=== PATIENT | male | born 1940 | race Caucasian/White ===

== ENCOUNTER → 2021-12-28 | Outpatient (CLI) | payer SELFPAY ==
[2021-12-28 12:37] LABS: Anion Gap 9 mmol/L (6-16); Blood Urea Nitrogen 17 mg/dL (8-24); Bun/Creatinine Ratio 22.1 (12.0-20.0); CO2, Blood 28 mmol/L (21-32); Calcium, Blood 9.2 mg/dL (8.5-10.1); Chloride, Blood 105 mmol/L (98-108); Creatinine, Blood 0.77 mg/dL (0.60-1.20); Glomerular Filtration Rate >60 (60-); Glucose, Blood 88 mg/dL (70-99); Magnesium, Blood 1.8 mg/dL (1.6-2.4); Phosphorus, Blood 3.8 mg/dL (2.5-4.9); Potassium, Blood 4.7 mmol/L (3.5-5.5); Sodium, Blood 142 mmol/L (136-145)
== END ==
LOC: LAB SHORT 12:16
PROVIDERS: Chiropractor
DX: I10 Essential (primary) hypertension (principal)
CPT/HCPCS: 80069; 83735

== ENCOUNTER 2023-09-09 04:13 | Emergency (ER) | payer MEDICARE, BC ==
[~2023-09-09] VITALS: Ht 172.7 cm; Wt 102.1 kg
[2023-09-09] MEDS ORDERED: LISI20 PO (04:29)
[2023-09-09] MEDS ORDERED: FUROSEMIDE20 MG PO (04:30)
[2023-09-09] MEDS ORDERED: KLOR-CON 1010 ME9 PO (04:30)
[2023-09-09] MEDS ORDERED: ATOR40TA (04:30)
[2023-09-09] MEDS ORDERED: ELIQUIS2.5 M1 PO (04:31)
[2023-09-09] MEDS ORDERED: METO50ER PO (04:31)
[2023-09-09] MEDS ORDERED: VERAPAMIL SR240 M1 PO (04:31)
[2023-09-09] MEDS ORDERED: HYDCHL25 (04:33)
[2023-09-09 05:02] LABS: BASOPHILS ABSOLUTE AUTO 0.07 K/mm3 (0.00-0.23); BASOPHILS PERCENT AUTO 1 % (0-2); EOSINOPHILS ABSOLUTE AUTO 0.05 K/mm3 (0.00-0.68); EOSINOPHILS PERCENT AUTO 1 % (0-6); Hematocrit 43.2 % (37.0-53.0); Hemoglobin 13.8 g/dL (13.5-17.5); IMMATURE GRAN ABSOLUTE AUTO 0.02 K/mm3 (0.00-0.10); IMMATURE GRAN PERCENT AUTO 0 % (0-1); LYMPHOCYTES ABSOLUTE AUTO 1.96 K/mm3 (0.84-5.20); LYMPHOCYTES PERCENT AUTO 33 % (21-46); MONOCYTES ABSOLUTE AUTO 0.65 K/mm3 (0.16-1.47); MONOCYTES PERCENT AUTO 11 % (4-13); Mean Corpuscular HGB 29.6 pg (26.0-34.0); Mean Corpuscular HGB Conc 31.9 g/dL (31.5-36.5); Mean Corpuscular Volume 93 fL (80-100); Mean Platelet Volume 9.8 fL (9.1-12.4); NEUTROPHILS PERCENT AUTO 54 % (41-73); Platelet Count 153 K/mm3 (150-400); RDW Coefficient Variation 13.5 % (11.7-14.2); RDW Standard Deviation 45.9 fL (35.1-46.3); Red Blood Cell Count 4.67 M/mm3 (4.30-5.90); White Blood Cell Count 5.95 K/mm3 (4.00-11.30)
[2023-09-09 06:45] VITALS: BP 149/109
== END 2023-09-09 07:00 | disposition home or self-care (01) ==
LOC: ER 04:13
PROVIDERS: Emergency Medicine
DX: R04.0 Epistaxis (principal); I48.91 Unspecified atrial fibrillation; Z79.01 Long term (current) use of anticoagulants; Z79.899 Other long term (current) drug therapy
CPT/HCPCS: 30903; 85025; 99283-25; A9270

== ENCOUNTER 2023-09-10 10:35 | Emergency (ER) | payer MEDICARE, BC ==
[~2023-09-10] VITALS: Ht 172.7 cm; Wt 99.8 kg
[~2023-09-10 10:35] MED LIST: ATOR40TA; ELIQUIS2.5 M1 PO; FUROSEMIDE20 MG PO; HYDCHL25; KLOR-CON 1010 ME9 PO; LISI20 PO; METO50ER PO; VERAPAMIL SR240 M1 PO
[2023-09-10 13:53] VITALS: BP 152/94
== END 2023-09-10 13:53 | disposition home or self-care (01) ==
LOC: ER 10:35
DX: R04.0 Epistaxis (principal); I48.91 Unspecified atrial fibrillation; Z95.0 Presence of cardiac pacemaker; Z79.01 Long term (current) use of anticoagulants; Z79.899 Other long term (current) drug therapy
CPT/HCPCS: 30901; 99283-25

== ENCOUNTER 2023-09-13 08:26 | Emergency (ER) | payer MEDICARE, BC ==
[~2023-09-13] VITALS: Ht 172.7 cm; Wt 99.8 kg
[2023-09-13 10:22] VITALS: BP 157/88
== END 2023-09-13 10:22 | disposition home or self-care (01) ==
LOC: ER 08:26
DX: R04.0 Epistaxis (principal); I48.91 Unspecified atrial fibrillation; Z79.01 Long term (current) use of anticoagulants; Z79.899 Other long term (current) drug therapy; Z95.0 Presence of cardiac pacemaker
CPT/HCPCS: 99282; A9270

== ENCOUNTER → 2023-09-24 | Outpatient (CLI) | payer MEDICARE, BC ==
[2023-09-24 16:49] LABS: BASOPHILS ABSOLUTE AUTO 0.05 K/mm3 (0.00-0.23); BASOPHILS PERCENT AUTO 1 % (0-2); EOSINOPHILS ABSOLUTE AUTO 0.07 K/mm3 (0.00-0.68); EOSINOPHILS PERCENT AUTO 1 % (0-6); Hematocrit 38.8 % (37.0-53.0); Hemoglobin 12.2 g/dL (13.5-17.5); IMMATURE GRAN ABSOLUTE AUTO 0.01 K/mm3 (0.00-0.10); IMMATURE GRAN PERCENT AUTO 0 % (0-1); LYMPHOCYTES ABSOLUTE AUTO 1.28 K/mm3 (0.84-5.20); LYMPHOCYTES PERCENT AUTO 21 % (21-46); MONOCYTES ABSOLUTE AUTO 0.84 K/mm3 (0.16-1.47); MONOCYTES PERCENT AUTO 14 % (4-13); Mean Corpuscular HGB 28.9 pg (26.0-34.0); Mean Corpuscular HGB Conc 31.4 g/dL (31.5-36.5); Mean Corpuscular Volume 92 fL (80-100); Mean Platelet Volume 9.9 fL (9.1-12.4); NEUTROPHILS ABSOLUTE AUTO 3.92 K/mm3 (1.96-9.15); NEUTROPHILS PERCENT AUTO 64 % (41-73); Platelet Count 239 K/mm3 (150-400); RDW Coefficient Variation 13.2 % (11.7-14.2); RDW Standard Deviation 44.5 fL (35.1-46.3); Red Blood Cell Count 4.22 M/mm3 (4.30-5.90); White Blood Cell Count 6.17 K/mm3 (4.00-11.30)
[2023-09-24 17:35] LABS: Calcium, Blood 9.2 mg/dL (8.5-10.1); Creatinine, Blood 0.72 mg/dL (0.60-1.20); Potassium, Blood 4.5 mmol/L (3.5-5.5)
== END ==
LOC: LAB SHORT 15:05 → LAB 15:05
PROVIDERS: Chiropractor
DX: R04.0 Epistaxis (principal); J32.9 Chronic sinusitis, unspecified
CPT/HCPCS: 80048; 85025

== ENCOUNTER 2024-09-21 09:29 | Emergency (ER) | payer MEDICARE, BC ==
[~2024-09-21] VITALS: Ht 172.7 cm; Wt 55.3 kg
[~2024-09-21 09:29] MED LIST changes: -ATOR40TA; +ATOR40TA PO
[2024-09-21 10:59] LABS: BASOPHILS ABSOLUTE AUTO 0.06 K/mm3 (0.00-0.23); BASOPHILS PERCENT AUTO 1 % (0-2); EOSINOPHILS ABSOLUTE AUTO 0.07 K/mm3 (0.00-0.68); EOSINOPHILS PERCENT AUTO 1 % (0-6); Hematocrit 44.8 % (37.0-53.0); Hemoglobin 14.2 g/dL (13.5-17.5); IMMATURE GRAN ABSOLUTE AUTO 0.01 K/mm3 (0.00-0.10); IMMATURE GRAN PERCENT AUTO 0 % (0-1); LYMPHOCYTES ABSOLUTE AUTO 1.71 K/mm3 (0.84-5.20); LYMPHOCYTES PERCENT AUTO 23 % (21-46); MONOCYTES ABSOLUTE AUTO 0.77 K/mm3 (0.16-1.47); MONOCYTES PERCENT AUTO 10 % (4-13); Mean Corpuscular HGB 29.4 pg (26.0-34.0); Mean Corpuscular HGB Conc 31.7 g/dL (31.5-36.5); Mean Corpuscular Volume 93 fL (80-100); Mean Platelet Volume 9.9 fL (9.1-12.4); NEUTROPHILS PERCENT AUTO 65 % (41-73); Platelet Count 152 K/mm3 (150-400); RDW Coefficient Variation 14.2 % (11.7-14.2); RDW Standard Deviation 48.7 fL (35.1-46.3); Red Blood Cell Count 4.83 M/mm3 (4.30-5.90); White Blood Cell Count 7.42 K/mm3 (4.00-11.30)
[2024-09-21 11:13] LABS: Albumin, Blood 3.6 g/dL (3.4-5.0); Bilirubin, Total 1.4 mg/dL (0.1-1.0); Bun/Creatinine Ratio 20.4 (12.0-20.0); Calcium, Blood 9.8 mg/dL (8.5-10.1); Creatinine, Blood 0.84 mg/dL (0.60-1.20); Globulin, Blood 3.6 g/dL (2.2-4.0); Potassium, Blood 5.2 mmol/L (3.5-5.5); Total Protein, Blood 7.2 g/dL (6.4-8.2)
[2024-09-21 11:16] LABS: D-Dimer, Quantitative 0.69 mg/L FEU (0.00-0.52); International Normalized Ratio 1.12; Prothrombin Time Results 11.9 Sec (9.7-11.5)
[2024-09-21] MEDS ORDERED: ALLEGRA ALLERG180 MG PO (11:48)
[2024-09-21] MEDS ORDERED: ACET500 PO (13:36)
[2024-09-21] MEDS ORDERED: OxyCODONE 5 mg/Acetamin 325 mg TABLET PO ONE (13:40)
[2024-09-21 14:01] VITALS: BP 171/99
== END 2024-09-21 14:01 | disposition home or self-care (01) ==
LOC: ER 09:29
PROVIDERS: Physician Assistant
DX: M79.81 Nontraumatic hematoma of soft tissue (principal); Z79.899 Other long term (current) drug therapy
CPT/HCPCS: 80053; 85025; 85379; 85610; 85730; 93926; 93971; 99284-25; A9270

== ENCOUNTER 2024-09-23 13:32 | Emergency (ER) | payer MEDICARE, BC ==
[~2024-09-23] VITALS: Ht 172.7 cm; Wt 102.1 kg
[~2024-09-23 13:32] MED LIST changes: +ACET500 PO; +ALLEGRA ALLERG180 MG PO
[2024-09-23 13:40] VITALS: BP 155/116
== END 2024-09-23 16:30 | disposition home or self-care (01) ==
LOC: ER 13:32
DX: M79.81 Nontraumatic hematoma of soft tissue (principal); Z79.899 Other long term (current) drug therapy
CPT/HCPCS: 99283

== ENCOUNTER 2024-09-24 20:17 | Inpatient (IN) | payer MEDICARE, BC ==
[~2024-09-24] VITALS: Ht 172.7 cm; Wt 101.0 kg
[2024-09-24 22:15] LABS: BASOPHILS ABSOLUTE AUTO 0.05 K/mm3 (0.00-0.23); BASOPHILS PERCENT AUTO 1 % (0-2); EOSINOPHILS ABSOLUTE AUTO 0.04 K/mm3 (0.00-0.68); EOSINOPHILS PERCENT AUTO 1 % (0-6); Hematocrit 32.9 % (37.0-53.0); Hemoglobin 10.5 g/dL (13.5-17.5); IMMATURE GRAN ABSOLUTE AUTO 0.01 K/mm3 (0.00-0.10); IMMATURE GRAN PERCENT AUTO 0 % (0-1); LYMPHOCYTES ABSOLUTE AUTO 1.52 K/mm3 (0.84-5.20); LYMPHOCYTES PERCENT AUTO 22 % (21-46); MONOCYTES ABSOLUTE AUTO 0.92 K/mm3 (0.16-1.47); MONOCYTES PERCENT AUTO 13 % (4-13); Mean Corpuscular HGB 29.4 pg (26.0-34.0); Mean Corpuscular HGB Conc 31.9 g/dL (31.5-36.5); Mean Corpuscular Volume 92 fL (80-100); Mean Platelet Volume 9.3 fL (9.1-12.4); NEUTROPHILS ABSOLUTE AUTO 4.42 K/mm3 (1.96-9.15); NEUTROPHILS PERCENT AUTO 64 % (41-73); Platelet Count 175 K/mm3 (150-400); RDW Coefficient Variation 14.1 % (11.7-14.2); RDW Standard Deviation 47.6 fL (35.1-46.3); Red Blood Cell Count 3.57 M/mm3 (4.30-5.90); White Blood Cell Count 6.96 K/mm3 (4.00-11.30)
[2024-09-24 22:30] LABS: International Normalized Ratio 1.12; Prothrombin Time Results 11.9 Sec (9.7-11.5)
[2024-09-24 22:35] LABS: Albumin, Blood 3.4 g/dL (3.4-5.0); Albumin/Globulin Ratio 0.9 (0.8-1.8); Bilirubin, Total 1.6 mg/dL (0.1-1.0); Bun/Creatinine Ratio 29.5 (12.0-20.0); Creatinine, Blood 0.81 mg/dL (0.60-1.20); Globulin, Blood 3.6 g/dL (2.2-4.0); Potassium, Blood 4.2 mmol/L (3.5-5.5)
[2024-09-24] MEDS ORDERED: Acetaminophen 500 MG Tab PO PRN (23:35)
[2024-09-24] MEDS ORDERED: FLU VACC TS2024-25(6MOS UP)/PF 45 MCG/0.5 ML SYRINGE IM ONE (23:50)
[2024-09-25 02:43] VITALS: BP 146/90
[2024-09-25 04:45] VITALS: BP 177/87
[2024-09-25 05:13] LABS: Hemoglobin 10.3 g/dL (13.5-17.5)
--- NOTE | 2024-09-25 06:17 | NUR ---
REC'D PT FROM ER @ 0220 WITH RLE HEMATOMA WHICH HE HAS BEEN SEEN 3 TIMES FOR SAME ISSUE IN ER. RLE IS WRAPPED WITH GUAZE AND COBAN. PT IS AAO X4. USES WALKER, SBA FOR AMBULATION D/T RLE PAIN AND IMPAIRED GAIT. NO AMBULATION ASSISTANCE DEVICE @ HOME. HIS ELDERLY SISTER LIVES WITH HIM. PT IS PLEASANT AND COOPERATIVE WITH CARES. NO ACUTE EVENTS OVERNIGHT.
--- NOTE | 2024-09-25 06:43 | NUR ---
DR. SAENZ IN ROOM TO ASSESS RLE. PLAN TO LEAVE DRESSING IN PLACE AND POSSIBLY REDRESS THIS AFTERNOON.
[2024-09-25 07:36] VITALS: BP 159/91
[2024-09-25] MEDS ORDERED: Furosemide 20 MG Tab PO SCH (09:00)
[2024-09-25] MEDS ORDERED: Metoprolol Succinate 50 MG TABCR PO SCH ×2 (09:00→21:00)
[2024-09-25] MEDS ORDERED: Lisinopril 20 MG Tab PO SCH (09:00)
[2024-09-25] MEDS ORDERED: Loratadine 10 MG Tab PO SCH (09:00)
[2024-09-25] MEDS ORDERED: Atorvastatin 40 MG Tab PO SCH (09:00)
--- NOTE | 2024-09-25 10:42 | NUR ---
DIAMETER OF R CALF: 52 CM
[2024-09-25 15:26] VITALS: BP 163/82
--- NOTE | 2024-09-25 15:37 | NUR ---
dr armstrong in to see pt changed dressing to rle. measured w/o dressin.6 cm. measured w/new dressing; 49.5 cm
[2024-09-25] MEDS ORDERED: Ipratropium/Albuterol SulF 2.5-0.5MG/3 ML Amp INH PRN (16:15)
--- NOTE | 2024-09-25 16:46 | NUR ---
summary PT WHEEZY THIS AFTERNOON. DR PALACIOS ORDERED DUONEB, WHICH WAS ADMINISTERED PER ORDERS. NO IMPROVEMENT NOTED AFTER DUONEB. NOTIFIED DR PALACIOS. SATS ADEQUATE ON RA. DRESSING TO R CALF CHANGED WHEN DR PALACIOS WAS IN TO SEE PT THIS AFERNOON. MEASUREMENTS TAKEN WITH DRESSING OFF AND NEW DRESSING PLACED. SEE PREVIOUS NOTES FOR MEASUREMENTS. PT AMBULATING TO RESTROOM W/FWW TO VOID. NOW RESTING IN BED, CALL LIGHT IN REACH.
[2024-09-25 19:08] VITALS: BP 136/65
[2024-09-25] MEDS ORDERED: Verapamil HCL 240 MG TABCR PO SCH (21:00)
[2024-09-25] MEDS ORDERED: TraMADol HCl 50 MG Tab PO PRN (21:35)
--- NOTE | 2024-09-26 00:24 | NUR ---
DIAMETER OF R CALF: 47.5CM
[2024-09-26 03:54] VITALS: BP 115/73
--- NOTE | 2024-09-26 06:46 | NUR ---
PT C/O EAR ACHE THROUGHOUT NIGHT. UPON ASSESSMENT PTS EARS LOOK WNL. PT GIVEN TYLENOL FOR PAIN BUT THAT DID NOT HELP. MD AWARE AND ORDERED ONE TIME ORDER OF TORADOL. GIVEN WITH GOOD EFFECT. PT CONTINUES TO BE WHEEZING HOWEVER LUNG SOUNDS ARE DIMINISHED IN ALL LOBES WITH NO CRACKLES. PTS RLE GOING DOWN IN SIZE. PT HAS NO FURTHER COMPLAINTS OR CONCERNS AT THIS TIME.
[2024-09-26 07:07] VITALS: BP 125/65
[2024-09-26 08:23] LABS: BASOPHILS ABSOLUTE AUTO 0.03 K/mm3 (0.00-0.23); BASOPHILS PERCENT AUTO 0 % (0-2); EOSINOPHILS PERCENT AUTO 0 % (0-6); Hematocrit 30.5 % (37.0-53.0); Hemoglobin 9.8 g/dL (13.5-17.5); IMMATURE GRAN ABSOLUTE AUTO 0.04 K/mm3 (0.00-0.10); IMMATURE GRAN PERCENT AUTO 1 % (0-1); LYMPHOCYTES ABSOLUTE AUTO 1.14 K/mm3 (0.84-5.20); LYMPHOCYTES PERCENT AUTO 15 % (21-46); MONOCYTES ABSOLUTE AUTO 1.18 K/mm3 (0.16-1.47); MONOCYTES PERCENT AUTO 15 % (4-13); Mean Corpuscular HGB 29.6 pg (26.0-34.0); Mean Corpuscular HGB Conc 32.1 g/dL (31.5-36.5); Mean Corpuscular Volume 92 fL (80-100); Mean Platelet Volume 9.1 fL (9.1-12.4); NEUTROPHILS ABSOLUTE AUTO 5.41 K/mm3 (1.96-9.15); NEUTROPHILS PERCENT AUTO 69 % (41-73); Platelet Count 182 K/mm3 (150-400); RDW Coefficient Variation 14.2 % (11.7-14.2); RDW Standard Deviation 48.3 fL (35.1-46.3); Red Blood Cell Count 3.31 M/mm3 (4.30-5.90)
[2024-09-26 08:55] LABS: Bun/Creatinine Ratio 25.7 (12.0-20.0); Calcium, Blood 8.9 mg/dL (8.5-10.1); Creatinine, Blood 0.9 mg/dL (0.60-1.20); Potassium, Blood 4.2 mmol/L (3.5-5.5)
[2024-09-26] MEDS ORDERED: Fluticasone 0.05% Nasal Spray SCH (09:00)
--- NOTE | 2024-09-26 11:11 | NUR ---
DR. BARON ROUNDED DISCUSSED DRESSING CHANGE ORDERS, DR. BARON REQUESTED THAT HE BE CALLED WHEN DRESSING IS CHANGED. PT REPORTS THAT HIS BASELINE SHORTNESS OF BREATH WITH ACTIVITY HAS INCREASED SLIGHTLY SINCE ADMIT TO THE HOSPITAL. HE HAS INSPIRATORY AND EXPIRATORY WHEEZES T/O. DISCUSSED POSSIBLE NEED FOR RESPIRATORY INTERVENTION. PT IS GETTING BREATHING TREATMENTS FROM RESPIRATORY THERAPY. PT DENIES ANY HISTORY OF CHRONIC RESPIRATORY ILLNESS BUT DOES REPORT A RECENT COLD.
[2024-09-26] MEDS ORDERED: OxyCODONE HCL 5 MG TAB PO PRN (14:35)
[2024-09-26 15:13] VITALS: BP 123/74
--- NOTE | 2024-09-26 15:30 | NUR ---
DR. FORREST ROUNDED THIS RN WAS NOTIFIED BY ELE BRITO THAT DR. FORREST WAS PRESENT ON THE UNIT ROUNDNING ON THIS PATIENT. THIS RN WAS HANDED 4X4 GAUZE AND NOTIFIED THAT DR. FORREST WANTED A CHUX PAD FOR A BEDSIDE PROCEDURE. BROUGHT SUPPLIES TO PT'S ROOM WHERE DR. FORREST WAS ALREADY AT THE BEDSIDE WITH PT'S LEG UNWRAPPED FROM THE DRESSING. THIS RN SANITIZED HANDS UPON ENTERING THE ROOM AND GLOVED. DURING THIS TIME PT AND FAMILY ASKED DR. FORREST WHAT HE WOULD BE DOING; HE STATED "I'M GOING TO POKE A SMALL HOLE IN YOUR LEG." FAMILY DECIDED TO LEAVE THE ROOM. DR. FORREST PLACED CHUX UNDER PT'S RIGHT LEG. THIS RN RAISED BED TO WORKING HEIGHT. DR. FORREST MADE APPROXIMATELY A 2 INCH INCISION IN THE PATIENT'S LEG. BLISTERS NEAR INCISION SITE WERE ALSO DRAINED. DR. FORREST ALSO APPLIED PRESSURE AROUND THE INCISION SITE, SMALL AMOUNT OF DARK BROWNISH/RED BLOOD CAME OUT OF INCISION. DR. FORREST PROBED THE INCISION WITH PLASTIC HANDLE OF THE SCALPEL. PT TOLERATED WELL WITH MINIMAL PAIN DURING PROCEDURE. DR. SPARKS ORDERED THE INCISION TO BE COVERED WITH 4X4 GUAZE AND OG WRAP. DRESSING PLACED. PULSES PRESENT AND PALPABLE AFTER PROCEDURE. PT DID REPORT SLIGHTLY INCREASED PAIN AFTER PROCEDURE WAS FINISHED. PROCEDURE HAPPENED AT APPROXIMATELY 1430. DR. BARON NOTIFIED OF BEDSIDE PROCEDURE, HE DECLINED NEED FOR ABX AT THIS TIME. DR. BARON PROVIDED AN ORDER FOR PAIN MEDICATION WHICH WAS GIVEN BY ELISABETH BRITO. SPOKE WITH ELISABETH STACK RN AND NURSING UNIT SUPPORT REPRESENTATIVE REGARDING BEDSIDE PROCEDURE. DR. BARON ROUNDED ON PT AT APPROXIMATELY 1515 TO ASSESSED PT'S LEG AND INCISION SITE; HE ASSISTED TO CLEANSE THE SITE WITH SKINTEGRITY AND REWRAP THE LEG WITH 4X4 GAUZE AND OG WRAP.
[2024-09-26] MEDS ORDERED: CeFAZolin Sodium 2,000 MG in NS 100 ML IV SCH (18:20)
[2024-09-26 19:23] VITALS: BP 124/79
--- NOTE | 2024-09-26 19:44 | NUR ---
SHIFT SUMMARY PLAN FOR OR TOMORROW TO REMOVE HEMATOMA WITH DR. FORREST. PT HAS BEEN A 1 ASSIST WITH GAIT BELT AND WALKER WHEN OOB. PT REPORTS GETTING SHORTNESS OF BREATH WITH ACTIVITY, PT STATES THIS IS NOT UNUSUAL FOR HIM BUT HAS BEEN SLIGHTLY WORSE SINCE BEING ADMITTED TO THE HOSPITAL, DOCTOR NOTIFIED. PAIN MANAGED WITH TYLENOL MOST OF THE DAY, OXYCODONE ADDED THIS EVENING. BEDSIDE REPORT GIVEN TO NOC RN. NOC RN WAS NOTIFIED THAT LISINOPRIL AND LASIX NEED TO BE HELD TOMORROW MORNING.
[2024-09-27] VITALS (15 sets, daily range): BP systolic 99–152; BP diastolic 56–94
--- NOTE | 2024-09-27 04:37 | NUR ---
SHIFT SUMMARY ASSUMED CARE OF PT AT 1900. PT A&O4, COOPERATIVE IN CARE AND ABLE TO EXPRESS NEEDS APPROPRIATELY. PT PRESENTED WITH HEMATOMA WITH INCISION TO THE RLE WRAPPED IN OG BANDAGE PREFORMED BY PRIOR TO THIS SHIFT. PT DENIES CP/PRESSURE AND SOB. VSS AND PT REMAINED ON RA. NO COMPLAINTS OF LEG PAIN OVERNIGHT AND PT SLEEPING SOUNDLY, EYES CLOSED AND CHEST RISING, MOST OF THE NIGHT. PT EASLIY AROUSABLE. NURSING NOTIFICATION ORDER TO HOLD LASIX AND LISINOPRIL TO BE HELD TODAY, 09/27/24 FOR PROCEDURE. PT'S BED IN LOWEST POSITION AND CALL LIGHT WITHIN REACH.
--- NOTE | 2024-09-27 06:04 | NUR ---
SHIFT SUMMARY ASSUMED CARE OF PT AT 1900. PT A&O4, COOPERATIVE IN CARE AND ABLE TO EXPRESS NEEDS APPROPRIATELY. PT PRESENTED WITH 3 SMALL MIDLINE ABDOMINAL INCISIONS AND ONE INSCISION TO THE LUQ ALL SEALED WITH SUGICAL GLUE. ALL C/D/I WITH NO DRAINAGE. PT WALKED AROUND THE UNIT WITH FAMILY FOR ABOUT 10 MINS AND PT MAINTAINED O2 SATURATION. PT DENIES SOB AND CP/PRESSURE. PER PT REQUEST; DRYING ROOM SUPERVISOR CALLED MD TO SWITCH IV PRN ANALGESICS TO ORAL. VSS AND PT ON RA MAJORITY OF THE NIGHT. BED IN LOWEST POSITION AND CALL LIGHT WITHIN REACH.
[2024-09-27 06:53] LABS: BASOPHILS ABSOLUTE AUTO 0.05 K/mm3 (0.00-0.23); BASOPHILS PERCENT AUTO 1 % (0-2); EOSINOPHILS PERCENT AUTO 0 % (0-6); Hematocrit 29.9 % (37.0-53.0); Hemoglobin 9.5 g/dL (13.5-17.5); IMMATURE GRAN ABSOLUTE AUTO 0.07 K/mm3 (0.00-0.10); IMMATURE GRAN PERCENT AUTO 1 % (0-1); LYMPHOCYTES ABSOLUTE AUTO 1.12 K/mm3 (0.84-5.20); LYMPHOCYTES PERCENT AUTO 11 % (21-46); MONOCYTES ABSOLUTE AUTO 1.33 K/mm3 (0.16-1.47); MONOCYTES PERCENT AUTO 13 % (4-13); Mean Corpuscular HGB 29.3 pg (26.0-34.0); Mean Corpuscular HGB Conc 31.8 g/dL (31.5-36.5); Mean Corpuscular Volume 92 fL (80-100); Mean Platelet Volume 9.1 fL (9.1-12.4); NEUTROPHILS ABSOLUTE AUTO 7.75 K/mm3 (1.96-9.15); NEUTROPHILS PERCENT AUTO 75 % (41-73); Platelet Count 210 K/mm3 (150-400); RDW Coefficient Variation 14.2 % (11.7-14.2); RDW Standard Deviation 48.3 fL (35.1-46.3); Red Blood Cell Count 3.24 M/mm3 (4.30-5.90); White Blood Cell Count 10.32 K/mm3 (4.00-11.30)
[2024-09-27 07:10] LABS: Calcium, Blood 8.9 mg/dL (8.5-10.1); Creatinine, Blood 1.32 mg/dL (0.60-1.20); Potassium, Blood 4.5 mmol/L (3.5-5.5)
--- NOTE | 2024-09-27 09:03 | NUR ---
MORNING NOTE ASSUMED CARE AT APPROX 0715. PATIENT ALERT AND ORIENTED X4. COMMUNICATES NEEDS EFFECTIVELY. VSS. TELEMETRY SHOWING AFIB 70 PER FUR LINER. BP SOFT, SBP 90s-110s. MAP >65. DENIES CHEST PAIN, PRESSURE. ASYMPTOMATIC OF SOFT BP. ON ROOM AIR, SATs >90%. EXP WHEEZE AUSCULTATED T/O - RECEIVING BREATHING TREATMENTS. RLE WRAPPED IN GAUZE AND OG WRAP FROM BEDSIDE DECOMPRESSION YESTERDAY - MINIMAL SANGUINOUS DRAINAGE. BRUISING TO CALF EXTENDING TO R FOOT. +3 EDEMA TO FOOT. EXTREMITY PINK, PPP. DENIES NUMBNESS/TINGLING. AWAITING I/D - NPO SINCE MIDNIGHT. PAIN TOLERABLE AT THIS TIME. 1P ASSIST W/ FWW GB. CALL LIGHT IN REACH.
[2024-09-27] MEDS ORDERED: Budesonide 1 MG/2 ML RESP INH SCH (09:40)
[2024-09-27] MEDS ORDERED: propofoL 20 ML IV ONE (09:52)
[2024-09-27] MEDS ORDERED: FentaNYL Citrate 50 MCG/ML 2 ML Injection ONE (09:52)
[2024-09-27] MEDS ORDERED: Lactated Ringer's 1,000 ML IV SCH (09:55)
[2024-09-27] MEDS ORDERED: Polyethylene Glycol 3350 17 gm PO ONE (10:00)
[2024-09-27] MEDS ORDERED: Bupivacaine 0.5% HCl 5 MG/ML 30MLVIAL ONE (10:04)
--- NOTE | 2024-09-27 10:09 | NUR ---
PATIENT TRANSFERRED OFF UNIT VIA BED FOR PROCEDURE AT APPROX 1005.
[2024-09-27] MEDS ORDERED: Ipratropium/Albuterol SulF 2.5-0.5MG/3 ML Amp INH ONE (10:15)
--- NOTE | 2024-09-27 10:15 | NUR ---
INTO SDS VIA BED. PT DENIES PAIN. HISTORY AND ALLERGIES REVIEWED. LUNGS WITH SCATTERED WHEEZED AND RHONCHI TO THE BASES. PT HAS A MOIST COUGH THAT IS OCCASIONALLY PRODUCTIVE OF GREEN SPUTUM. NPO STATUS CONFIRMED.RIGHT CALF WITH OG WRAP. THE RIGHT LOWER EXTREMITY WITH ERYTHEMA NOTED.
--- NOTE | 2024-09-27 10:20 | NUR ---
#20 PIV TO RIGHT FOREARM C/D/I-FLUSHES WELL.
--- NOTE | 2024-09-27 10:39 | NUR ---
AFTER UDN-COUGH PRODUCTIVE OF A MODERATE AMOUNT OF THICK, REYNOLDS SPUTUM. 12 LEAD EKG DONE. PT WATCH TAKEN BACK TO HIS ROOM WITH THE REST OF HIS BELONGINGS.
[2024-09-27] MEDS ORDERED: Etomidate 2MG / ML 10ML Vial ONE (10:43)
[2024-09-27] MEDS ORDERED: Dexamethasone Sod Phos 10 MG/ML 1ML VIAL ONE (11:26)
[2024-09-27] MEDS ORDERED: Ondansetron HCl 2 MG / ML 2ML Vial ONE (11:26)
--- NOTE | 2024-09-27 12:26 | NUR ---
RETURN TO UNIT PATIENT TRANSFERRED BACK TO UNIT FROM PACU AT APPROX 1220. PATIENT ALERT AND ORIENTED X4, COMMUNICATING NEEDS EFFECTIVELY. VSS. CURRENTLY ON 3L VIA NC, SATs >90%. LUNG SOUNDS COARSE. ENCOURAGING DEEP BREATHS AND COUGHING. S/P I/D WITH WOUND VAC PLACEMENT. WOUND VAC WNL - FUNCTIONING WELL. DENIES PAIN. TOLERATING SMALL SIPS OF WATER AND SNACKS. DIET ORDER NOW IN PLACE. CALL LIGHT IN REACH. FAMILY AT BEDSIDE VISITING.
--- NOTE | 2024-09-27 17:54 | NUR ---
SHIFT SUMMARY NO ACUTE CHANGES SINCE PREVIOUS DOCUMENTATION. PATIENT SLEPT MOST OF THE AFTERNOON FOLLOWING PROCEDURE, EASILY AROUSABLE WITH VERBAL STIMULI. VS REMAIN STABLE. NO EVENTS REPORTED FROM TELEMETRY. TITRATED TO ROOM AIR, SATs >90%. OCCASIONAL HACKING, CONGESTED COUGH. OCCASIONALLY PRODUCTIVE. WOUND VAC TO RLE REMAINS PATENT - MINIMAL SANGUINOUS DRAINAGE IN COLLECTION CHAMGER. PAIN MANAGED PER EMAR. UP TO RESTROOM TO VOID WITH 1P ASSIST FWW GB. NO BM THIS SHIFT. TOLERATING PO INTAKE. CALL LIGHT IN REACH. WILL CONTINUE TO MONITOR AND REPORT TO ONCOMING RN.
--- NOTE | 2024-09-27 23:05 | NUR ---
CALLED RT FOR PRN RESP TREATMENT D/T COUGHING.
[2024-09-28] VITALS (7 sets, daily range): BP systolic 90–131; BP diastolic 58–75
--- NOTE | 2024-09-28 04:10 | NUR ---
SHIFT SUMMARY PATIENT WAS ABLE TO SLEEP IN LONG INTERVALS, INTERRUPTED BY EPISODES OF COUGHING. RT PAGED AND HE WAS GIVEN A PRN RESP. TREATMENT. ALSO GIVEN ORAL PAIN MEDS AT HS, DID START O2/2L/NC FOR THE NIGHT TO KEEP SATS UP. TELE, V PACED @ 92, WITH UNDERLYING RHYTHM OF A FIB. WOUND VAC, DRAINING BLOOD-TINGED DRAINAGE IN SMALL AMOUNTS ALL NIGHT.
[2024-09-28 06:09] LABS: BASOPHILS ABSOLUTE AUTO 0.02 K/mm3 (0.00-0.23); BASOPHILS PERCENT AUTO 0 % (0-2); EOSINOPHILS PERCENT AUTO 0 % (0-6); Hematocrit 29.1 % (37.0-53.0); Hemoglobin 9.2 g/dL (13.5-17.5); IMMATURE GRAN ABSOLUTE AUTO 0.05 K/mm3 (0.00-0.10); IMMATURE GRAN PERCENT AUTO 1 % (0-1); LYMPHOCYTES ABSOLUTE AUTO 0.61 K/mm3 (0.84-5.20); LYMPHOCYTES PERCENT AUTO 6 % (21-46); MONOCYTES ABSOLUTE AUTO 0.85 K/mm3 (0.16-1.47); MONOCYTES PERCENT AUTO 8 % (4-13); Mean Corpuscular HGB 29.2 pg (26.0-34.0); Mean Corpuscular HGB Conc 31.6 g/dL (31.5-36.5); Mean Corpuscular Volume 92 fL (80-100); NEUTROPHILS ABSOLUTE AUTO 9.32 K/mm3 (1.96-9.15); NEUTROPHILS PERCENT AUTO 86 % (41-73); Platelet Count 228 K/mm3 (150-400); RDW Coefficient Variation 14.2 % (11.7-14.2); RDW Standard Deviation 48.1 fL (35.1-46.3); Red Blood Cell Count 3.15 M/mm3 (4.30-5.90); White Blood Cell Count 10.85 K/mm3 (4.00-11.30)
[2024-09-28 06:35] LABS: Bun/Creatinine Ratio 46.2 (12.0-20.0); Calcium, Blood 9.1 mg/dL (8.5-10.1); Potassium, Blood 4.5 mmol/L (3.5-5.5)
[2024-09-28] MEDS ORDERED: Polyethylene Glycol 3350 17 gm PO PRN (09:00)
[2024-09-28] MEDS ORDERED: Psyllium 1 EA Pack PO SCH (09:00)
--- NOTE | 2024-09-28 09:59 | NUR ---
MORNING NOTE THIS RN ASSUMED CARE AT APPROX 0715. PATIENT ALERT AND ORIENTED X4. COMMUNICATES NEEDS EFFECTIVELY. TELEMETRY SHOWING AFIB 70s WITH PACED BEATS PER PERFORMANCE INSTRUCTOR. BP SOFT - SBP 90s-100s. MAP >65. ASYMPTOMATIC - DENIES DIZZINESS WITH AMBULATION. HTN MEDICATIONS HELD. PO LASIX ADMINISTERED PER EMAR DUE TO +2 EDEMA TO LLE, +3 EDEMA TO RLE. SHORTNESS OF BREATH WITH MOBILITY. ON ROOM AIR, SATs >90%. EXPERIENCES EPISODES OF INCREASED HACKING COUGH, SOMEWHAT PRODUCTIVE. COARSE T/O THIS MORNING. RECEIVING BREATHING TREATMENTS PRN. POD 1 I/D RLE WITH WOUND VAC. WOUND VAC PATENT - MINIMAL RED SANGUINOUS DRAINAGE IN COLLECTION CHAMBER. MANAGING PAIN PER EMAR. TOLERATING PO INTAKE. UP WITH 1P ASSIST FWW GB - DENIED SITTING IN CHAIR THIS MORNING. VOIDING. BOWEL CARE STARTED FOR REPORTED CONSTIPATION. CALL LIGHT IN REACH.
--- NOTE | 2024-09-28 17:02 | NUR ---
SHIFT SUMMARY NO ACUTE EVENTS SINCE PREVIOUS DOCUMENTATION. VSS. NO TELEMETRY EVENTS REPORTED. BP REMAINS SOFT, SBP 90s-100s. MAP >65. CONTINUED SHORTNESS OF BREATH WITH MOBILITY. REMAINS ON ROOM AIR. EPISODES OF CONGESTED COUGH. WOUND VAC REMAINS PATENT W/ SANGUINOUS RED DRAINAGE. MANAGING PAIN PER EMAR. PHYSICAL AND OCCUPATIONAL EVAL ORDERS IN PLACE - WORKED WITH OCCUPATIONAL THERAPY. UP WITH 1P ASSIST FWW GB TO RESTROOM. DECREASED URINARY OUTPUT NOTED - ENCOURAGING PO INTAKE. BLADDER SCAN PERFORMED SHOWING <100. NO BM THIS SHIFT. CALL LIGHT IN REACH. WILL CONTINUE TO MONITOR AND REPORT TO ONCOMING RN.
[2024-09-29] VITALS (19 sets, daily range): BP systolic 94–164; BP diastolic 54–111
--- NOTE | 2024-09-29 05:34 | NUR ---
SHIFT SUMMARY PT HAS RESTS IN BED T/O THE NIGHT, PT HAS INTERMITTENT CONFUSION. PT WAKES UP CONFUSED AND DISORIENTED, FORGETS WHERE HE IS. PT REORIENTED PRN. BED ALARM IN PLACE FOR SAFETY. WOUND VAC IN PLACE TO RIGHT LOWER EXT. PULSES STRONG IN RIGHT FOOT. PT AMBULATES TO THE BATHROOM WITH 1 PA. PT BP SOFT WITH AM VITALS, BUT MAP WNL. PLAN OF CARE REMAINS UNCHANGED. BED IN LOWEST POSITION, CALL LIGHT WITHIN REACH.
[2024-09-29 07:08] LABS: BASOPHILS ABSOLUTE AUTO 0.04 K/mm3 (0.00-0.23); BASOPHILS PERCENT AUTO 0 % (0-2); EOSINOPHILS ABSOLUTE AUTO 0.03 K/mm3 (0.00-0.68); EOSINOPHILS PERCENT AUTO 0 % (0-6); Hematocrit 27.8 % (37.0-53.0); Hemoglobin 8.9 g/dL (13.5-17.5); IMMATURE GRAN ABSOLUTE AUTO 0.06 K/mm3 (0.00-0.10); IMMATURE GRAN PERCENT AUTO 1 % (0-1); LYMPHOCYTES ABSOLUTE AUTO 0.97 K/mm3 (0.84-5.20); LYMPHOCYTES PERCENT AUTO 9 % (21-46); MONOCYTES ABSOLUTE AUTO 0.86 K/mm3 (0.16-1.47); MONOCYTES PERCENT AUTO 8 % (4-13); Mean Corpuscular HGB 29.5 pg (26.0-34.0); Mean Corpuscular Volume 92 fL (80-100); NEUTROPHILS ABSOLUTE AUTO 8.54 K/mm3 (1.96-9.15); NEUTROPHILS PERCENT AUTO 81 % (41-73); Platelet Count 255 K/mm3 (150-400); RDW Coefficient Variation 14.3 % (11.7-14.2); RDW Standard Deviation 48.1 fL (35.1-46.3); Red Blood Cell Count 3.02 M/mm3 (4.30-5.90)
[2024-09-29 07:21] LABS: Bun/Creatinine Ratio 50.5 (12.0-20.0); Calcium, Blood 8.9 mg/dL (8.5-10.1); Creatinine, Blood 1.09 mg/dL (0.60-1.20); Potassium, Blood 4.3 mmol/L (3.5-5.5)
[2024-09-29] MEDS ORDERED: Lisinopril 5 MG Tab PO SCH (09:00)
--- NOTE | 2024-09-29 14:19 | NUR ---
DR JIMÉNEZ IN TO SEE PT.
[2024-09-29] MEDS ORDERED: TraMADol HCl 50 MG Tab PO PRN (14:35)
[2024-09-29] MEDS ORDERED: CefTRIAXone Sodium 2,000 MG in NS 100 ML IV SCH (15:00)
[2024-09-29] MEDS ORDERED: NS 250 ML IV PRN (15:20)
--- NOTE | 2024-09-29 16:24 | NUR ---
PT TO PRE OP IN BED.
[2024-09-29] MEDS ORDERED: Lactated Ringer's 1,000 ML IV SCH (16:30)
--- NOTE | 2024-09-29 16:37 | NUR ---
History, Chart, Medications and Allergies reviewed before start of procedure. Pre-Op teaching done. Pt verbalizes understanding. Patient confirms NPO status and agrees with scheduled surgery. PT BELONGINGS LEFT IN PT SURG FLOOR RM.
[2024-09-29] MEDS ORDERED: Ondansetron HCl 2 MG / ML 2ML Vial ONE (16:43)
[2024-09-29] MEDS ORDERED: propofoL 0 ML IV ONE (16:43)
[2024-09-29] MEDS ORDERED: Dexamethasone Sod Phos 10 MG/ML 1ML VIAL ONE (16:43)
[2024-09-29] MEDS ORDERED: propofoL 40 ML IV ONE (16:44)
[2024-09-29] MEDS ORDERED: Phenylephrine HCl 100 MCG/ML-NS 10MLSYR (1MG/10ML) ONE (16:54)
[2024-09-29] MEDS ORDERED: CeFAZolin Sodium 1000 mg Vial ONE (16:56)
[2024-09-29] MEDS ORDERED: FentaNYL Citrate 50 MCG/ML 2 ML Injection ONE (17:00)
[2024-09-29] MEDS ORDERED: Ketorolac Tromethamine 30mg Vial ONE (17:04)
--- NOTE | 2024-09-29 18:24 | NUR ---
PT ARRIVED TO UNIT FROM PACU IN BED. VSS. WOUND VAC COMPRESSED. PROVIDED CALL LIGHT, INSTRUCTED PT TO NOT GET UP WITH OUT ASSISTANCE; VERBALIZED UNDERSTANDING. PROVIDED SNACK FOR PT.
[2024-09-30 03:56] VITALS: BP 94/62
--- NOTE | 2024-09-30 05:10 | NUR ---
SHIFT SUMMARY PT POD 0 RLE I&D. PT HAS RESTED T/O THE NIGHT, PAIN HAS BEEN MANANGED WITH MEDS PER EMAR. WOUND VAC IN PLACE. PT HAS NOT ATTEMPTED TO GET OOB WITHOUT ASSISTANCE. A/OX4. VITALS STABLE. SURGICAL SITE WNL. PT TOLERATING PO INTAKE. BED IN LOWEST POSITION, CALL LIGHT WITHIN REACH.
[2024-09-30 07:06] VITALS: BP 133/80
[2024-09-30 08:01] LABS: BASOPHILS ABSOLUTE AUTO 0.02 K/mm3 (0.00-0.23); BASOPHILS PERCENT AUTO 0 % (0-2); EOSINOPHILS PERCENT AUTO 0 % (0-6); Hemoglobin 9.1 g/dL (13.5-17.5); IMMATURE GRAN ABSOLUTE AUTO 0.08 K/mm3 (0.00-0.10); IMMATURE GRAN PERCENT AUTO 1 % (0-1); LYMPHOCYTES ABSOLUTE AUTO 0.75 K/mm3 (0.84-5.20); LYMPHOCYTES PERCENT AUTO 8 % (21-46); MONOCYTES ABSOLUTE AUTO 0.51 K/mm3 (0.16-1.47); MONOCYTES PERCENT AUTO 6 % (4-13); Mean Corpuscular HGB 29.3 pg (26.0-34.0); Mean Corpuscular HGB Conc 31.4 g/dL (31.5-36.5); Mean Corpuscular Volume 93 fL (80-100); Mean Platelet Volume 8.8 fL (9.1-12.4); NEUTROPHILS ABSOLUTE AUTO 7.58 K/mm3 (1.96-9.15); NEUTROPHILS PERCENT AUTO 85 % (41-73); Platelet Count 276 K/mm3 (150-400); RDW Coefficient Variation 14.3 % (11.7-14.2); RDW Standard Deviation 48.5 fL (35.1-46.3); Red Blood Cell Count 3.11 M/mm3 (4.30-5.90); White Blood Cell Count 8.94 K/mm3 (4.00-11.30)
[2024-09-30 08:23] LABS: Bun/Creatinine Ratio 54.7 (12.0-20.0); Calcium, Blood 9.6 mg/dL (8.5-10.1); Creatinine, Blood 0.8 mg/dL (0.60-1.20); Potassium, Blood 5.5 mmol/L (3.5-5.5)
[2024-09-30 12:10] LABS: CORONAVIRUS COVID-19 AG Negative (NEGATIVE)
[2024-09-30 15:17] VITALS: BP 143/88
--- NOTE | 2024-09-30 18:38 | NUR ---
SHIFT SUMMARY PT IS POD#1 FROM I&D. PAIN MANAGED WITH TYLENOL AND ULTRAM THIS SHIFT. HE IS A SBA WITH WALKER WHEN OOB. PLAN FOR DC TO SNF TOMORROW. PT IS FORGETFUL AT TIMES REGARDING CARE BUT REORIENTS EASILY.
[2024-09-30 19:09] VITALS: BP 144/75
--- NOTE | 2024-10-01 04:08 | NUR ---
SHIFT SUMMARY POD 3 REPEAT I&D TO RLE PT ABLE TO SLEEP FOR MOST OF SHIFT. DENIES ANY PAIN. TOLERATING PO INTAKE, VOIDING. PT ABLE TO GET UP AND AMB TO THE BATHROOM WITH FWW AND GB. WOUND VAC IN PLACE TO RLE, DRAINING AND SEALED. VSS. PLAN TO D/C TO [facility] TODAY. NO OTHER CONCERNS AT THIS TIME, CALL LIGHT WITHIN REACH
[2024-10-01 05:57] VITALS: BP 121/79
[2024-10-01 07:37] VITALS: BP 136/76
[2024-10-01] MEDS ORDERED: Cefdinir 300 MG Cap PO SCH (09:00)
[2024-10-01] MEDS ORDERED: TraMADol HCl 50 MG Tab PO ONE (10:50)
--- NOTE | 2024-10-01 12:44 | NUR ---
SNF PT DISCHARGED TO [facility] AT THIS TIME. DISCHARGE PACKET SENT WITH EMS. PT FAMILY TOOK ALL PERSONAL BELONGINGS. TELE BOX RETURNED TO PCU. IV DC'D. WOUND VAC LEFT IN PT ROOM FOR CLEANING. PRIMARY RN CALLING REPORT TO SNF NOW.
--- NOTE | 2024-10-01 12:54 | NUR ---
REPORT TO [facility]
== END 2024-10-01 12:40 | DRG 988 ==
LOC: ER 20:17 → SURS 20:18 → ERHOLD 20:18 → SURS 09-25 02:22
PROVIDERS: Hospitalist; Orthopaedic Surgery; Student in an Organized Health Care Education/Training Program; ADMIT Internal Medicine
PROC: 0HBKXZZ Excision of Right Lower Leg Skin, External Approach (ICD-10-PCS; 2024-09-27)
PROC: 0JCN0ZZ Extirpation of Matter from Right Lower Leg Subcutaneous Tissue and Fascia, Open Approach (ICD-10-PCS; principal; 2024-09-27 10:15)
DX: M79.81 Nontraumatic hematoma of soft tissue (principal); I48.20 Chronic atrial fibrillation, unspecified; I50.32 Chronic diastolic (congestive) heart failure; L76.11 Accidental puncture and laceration of skin and subcutaneous tissue during a dermatologic procedure; S80.11XA Contusion of right lower leg, initial encounter; E78.5 Hyperlipidemia, unspecified; F10.10 Alcohol abuse, uncomplicated; I11.0 Hypertensive heart disease with heart failure; R06.2 Wheezing; R09.82 Postnasal drip; J42 Unspecified chronic bronchitis; E80.6 Other disorders of bilirubin metabolism; Z79.01 Long term (current) use of anticoagulants; Z79.811 Long term (current) use of aromatase inhibitors; Z79.899 Other long term (current) drug therapy; Z79.891 Long term (current) use of opiate analgesic; Z90.89 Acquired absence of other organs; Z95.0 Presence of cardiac pacemaker; Z98.890 Other specified postprocedural states; Z28.89 Immunization not carried out for other reason
CPT/HCPCS: 36415; 80048; 80053; 85014; 85018; 85025; 85610; 85730; 87426-QW; 93005; 93010; 94640; 94664; 94760; 94762; 97110; 97116; 97162; 97165; 97530; 97535; 99284-25; A9270; G0378; J0690; J0696; J1100; J1885; J2371; J2405; J2704; J3010; J7050; J7120; J7626

== ENCOUNTER 2024-10-18 03:15 | Day surgery (SDC) | payer MEDICARE, BC ==
[2024-10-18] MEDS ORDERED: Lidocaine HCl 4% Cream 5 GM ONE (13:02)
== END 2024-10-18 23:00 | disposition home or self-care (01) ==
LOC: WOUND 03:15
DX: S81.801A Unspecified open wound, right lower leg, initial encounter (principal); X58.XXXA Exposure to other specified factors, initial encounter; Z95.0 Presence of cardiac pacemaker; I10 Essential (primary) hypertension; I87.2 Venous insufficiency (chronic) (peripheral)
CPT/HCPCS: A9270; G0463

== ENCOUNTER 2024-10-25 03:41 | Day surgery (SDC) | payer MEDICARE ==
[2024-10-25] MEDS ORDERED: Lidocaine HCl 4% Cream 5 GM ONE (10:25)
== END 2024-10-25 23:00 | disposition home or self-care (01) ==
LOC: WOUND 03:41
DX: T81.31XD Disruption of external operation (surgical) wound, not elsewhere classified, subsequent encounter (principal); I87.2 Venous insufficiency (chronic) (peripheral); I10 Essential (primary) hypertension; I48.91 Unspecified atrial fibrillation; Z79.01 Long term (current) use of anticoagulants; Z95.0 Presence of cardiac pacemaker
CPT/HCPCS: A9270; G0463

== ENCOUNTER 2024-11-01 04:36 | Day surgery (SDC) | payer MEDICARE ==
[2024-11-01] MEDS ORDERED: Lidocaine HCl 4% Cream 5 GM ONE (10:29)
== END 2024-11-01 23:00 | disposition home or self-care (01) ==
LOC: WOUND 04:36
DX: T81.31XD Disruption of external operation (surgical) wound, not elsewhere classified, subsequent encounter (principal); I48.91 Unspecified atrial fibrillation; L97.212 Non-pressure chronic ulcer of right calf with fat layer exposed; S80.11XA Contusion of right lower leg, initial encounter; I87.2 Venous insufficiency (chronic) (peripheral); I10 Essential (primary) hypertension; Z95.0 Presence of cardiac pacemaker; Y83.8 Other surgical procedures as the cause of abnormal reaction of the patient, or of later complication, without mention of misadventure at the time of the procedure
CPT/HCPCS: A9270

== ENCOUNTER 2024-11-08 04:07 | Day surgery (SDC) | payer MEDICARE, BC ==
[2024-11-08] MEDS ORDERED: Lidocaine HCl 4% Cream 5 GM ONE (10:38)
== END 2024-11-08 23:00 | disposition home or self-care (01) ==
LOC: WOUND 04:07
DX: T81.31XD Disruption of external operation (surgical) wound, not elsewhere classified, subsequent encounter (principal); I48.91 Unspecified atrial fibrillation; I87.2 Venous insufficiency (chronic) (peripheral); I73.9 Peripheral vascular disease, unspecified; Z79.01 Long term (current) use of anticoagulants; Z95.0 Presence of cardiac pacemaker
CPT/HCPCS: A9270

== ENCOUNTER 2024-11-15 06:22 | Day surgery (SDC) | payer MEDICARE, BC | END 2024-11-15 23:00 | disposition home or self-care (01) | LOC: WOUND 06:22 | DX: T81.31XD Disruption of external operation (surgical) wound, not elsewhere classified, subsequent encounter (principal); I87.2 Venous insufficiency (chronic) (peripheral); I73.9 Peripheral vascular disease, unspecified; I10 Essential (primary) hypertension; I48.91 Unspecified atrial fibrillation; Z79.01 Long term (current) use of anticoagulants; Z95.0 Presence of cardiac pacemaker ==

== ENCOUNTER 2024-11-22 06:26 | Day surgery (SDC) | payer MEDICARE, BC | END 2024-11-22 23:00 | disposition home or self-care (01) | LOC: WOUND 06:26 | DX: L97.812 Non-pressure chronic ulcer of other part of right lower leg with fat layer exposed (principal); I48.91 Unspecified atrial fibrillation; S80.11XA Contusion of right lower leg, initial encounter; I87.2 Venous insufficiency (chronic) (peripheral); I10 Essential (primary) hypertension; I73.9 Peripheral vascular disease, unspecified; Z79.01 Long term (current) use of anticoagulants; Z95.0 Presence of cardiac pacemaker ==

== ENCOUNTER 2024-11-29 01:22 | Day surgery (SDC) | payer MEDICARE, BC | END 2024-11-29 23:00 | disposition home or self-care (01) | LOC: WOUND 01:22 | DX: L97.212 Non-pressure chronic ulcer of right calf with fat layer exposed (principal); T81.31XD Disruption of external operation (surgical) wound, not elsewhere classified, subsequent encounter; I87.2 Venous insufficiency (chronic) (peripheral); I10 Essential (primary) hypertension; I73.9 Peripheral vascular disease, unspecified; Y83.8 Other surgical procedures as the cause of abnormal reaction of the patient, or of later complication, without mention of misadventure at the time of the procedure; Z95.0 Presence of cardiac pacemaker ==

== ENCOUNTER 2024-12-06 00:58 | Day surgery (SDC) | payer MEDICARE, BC | END 2024-12-06 23:00 | disposition home or self-care (01) | LOC: WOUND 00:58 | DX: L97.212 Non-pressure chronic ulcer of right calf with fat layer exposed (principal); S80.11XA Contusion of right lower leg, initial encounter; I10 Essential (primary) hypertension; I87.2 Venous insufficiency (chronic) (peripheral); I73.9 Peripheral vascular disease, unspecified; Z95.0 Presence of cardiac pacemaker; Z79.01 Long term (current) use of anticoagulants | CPT/HCPCS: 93971 ==

== ENCOUNTER 2024-12-13 01:05 | Day surgery (SDC) | payer MEDICARE, BC | END 2024-12-13 23:00 | disposition home or self-care (01) | LOC: WOUND 01:05 | DX: T81.31XD Disruption of external operation (surgical) wound, not elsewhere classified, subsequent encounter (principal); L97.212 Non-pressure chronic ulcer of right calf with fat layer exposed; I48.91 Unspecified atrial fibrillation; I87.2 Venous insufficiency (chronic) (peripheral); I10 Essential (primary) hypertension; I73.9 Peripheral vascular disease, unspecified; Y83.8 Other surgical procedures as the cause of abnormal reaction of the patient, or of later complication, without mention of misadventure at the time of the procedure; Z95.0 Presence of cardiac pacemaker | CPT/HCPCS: G0463 ==

== ENCOUNTER 2024-12-20 01:28 | Day surgery (SDC) | payer MEDICARE, BC | END 2024-12-20 23:00 | disposition home or self-care (01) | LOC: WOUND 01:28 | DX: L97.812 Non-pressure chronic ulcer of other part of right lower leg with fat layer exposed (principal); T81.31XD Disruption of external operation (surgical) wound, not elsewhere classified, subsequent encounter; I73.9 Peripheral vascular disease, unspecified; I87.2 Venous insufficiency (chronic) (peripheral); I10 Essential (primary) hypertension; I48.91 Unspecified atrial fibrillation; Z95.0 Presence of cardiac pacemaker; Z79.01 Long term (current) use of anticoagulants ==

== ENCOUNTER 2024-12-27 02:29 | Day surgery (SDC) | payer MEDICARE | END 2024-12-27 23:00 | disposition home or self-care (01) | LOC: WOUND 02:29 | DX: L97.212 Non-pressure chronic ulcer of right calf with fat layer exposed (principal); T81.31XA Disruption of external operation (surgical) wound, not elsewhere classified, initial encounter; I87.2 Venous insufficiency (chronic) (peripheral); I73.9 Peripheral vascular disease, unspecified; I10 Essential (primary) hypertension; I48.91 Unspecified atrial fibrillation; Z79.01 Long term (current) use of anticoagulants; Z95.0 Presence of cardiac pacemaker ==

== ENCOUNTER 2025-01-03 01:47 | Day surgery (SDC) | payer MEDICARE | END 2025-01-03 23:25 | disposition home or self-care (01) | LOC: WOUND 01:47 | DX: L97.212 Non-pressure chronic ulcer of right calf with fat layer exposed (principal); I48.91 Unspecified atrial fibrillation; I87.2 Venous insufficiency (chronic) (peripheral); I10 Essential (primary) hypertension; I73.9 Peripheral vascular disease, unspecified; S80.11XD Contusion of right lower leg, subsequent encounter; X58.XXXD Exposure to other specified factors, subsequent encounter; Z79.01 Long term (current) use of anticoagulants; Z95.0 Presence of cardiac pacemaker ==

== ENCOUNTER 2025-01-10 08:00 | Day surgery (SDC) | payer MEDICARE | END 2025-01-12 23:00 | disposition home or self-care (01) | LOC: WOUND 08:00 | DX: L97.819 Non-pressure chronic ulcer of other part of right lower leg with unspecified severity (principal); S80.11XA Contusion of right lower leg, initial encounter; I87.2 Venous insufficiency (chronic) (peripheral); Z95.0 Presence of cardiac pacemaker; I10 Essential (primary) hypertension; I73.9 Peripheral vascular disease, unspecified; I48.91 Unspecified atrial fibrillation; Z79.01 Long term (current) use of anticoagulants ==

== ENCOUNTER 2025-01-17 00:57 | Day surgery (SDC) | payer MEDICARE | END 2025-01-17 23:00 | disposition home or self-care (01) | LOC: WOUND 00:57 | DX: L97.812 Non-pressure chronic ulcer of other part of right lower leg with fat layer exposed (principal); T81.31XA Disruption of external operation (surgical) wound, not elsewhere classified, initial encounter; I87.2 Venous insufficiency (chronic) (peripheral); I73.9 Peripheral vascular disease, unspecified; I10 Essential (primary) hypertension; I48.91 Unspecified atrial fibrillation; Z79.01 Long term (current) use of anticoagulants; Z95.0 Presence of cardiac pacemaker ==

== ENCOUNTER 2025-01-24 01:18 | Day surgery (SDC) | payer MEDICARE | END 2025-01-24 23:00 | disposition home or self-care (01) | LOC: WOUND 01:18 | DX: L97.212 Non-pressure chronic ulcer of right calf with fat layer exposed (principal); T81.31XA Disruption of external operation (surgical) wound, not elsewhere classified, initial encounter; I87.2 Venous insufficiency (chronic) (peripheral); I73.9 Peripheral vascular disease, unspecified; I10 Essential (primary) hypertension; I48.91 Unspecified atrial fibrillation; Z79.01 Long term (current) use of anticoagulants; Z95.0 Presence of cardiac pacemaker ==

== ENCOUNTER 2025-01-31 01:38 | Day surgery (SDC) | payer MEDICARE | END 2025-01-31 23:00 | disposition home or self-care (01) | LOC: WOUND 01:38 | DX: L97.212 Non-pressure chronic ulcer of right calf with fat layer exposed (principal); S80.11XA Contusion of right lower leg, initial encounter; X58.XXXA Exposure to other specified factors, initial encounter; I73.9 Peripheral vascular disease, unspecified; I10 Essential (primary) hypertension; I87.2 Venous insufficiency (chronic) (peripheral); I48.91 Unspecified atrial fibrillation; Z95.0 Presence of cardiac pacemaker; Z79.01 Long term (current) use of anticoagulants ==

== ENCOUNTER → 2025-02-07 | Day surgery (SDC) | payer MEDICARE | LOC: WOUND 12:57 | DX: L97.212 Non-pressure chronic ulcer of right calf with fat layer exposed (principal); T81.31XD Disruption of external operation (surgical) wound, not elsewhere classified, subsequent encounter; I48.91 Unspecified atrial fibrillation; I87.2 Venous insufficiency (chronic) (peripheral); I10 Essential (primary) hypertension; I73.9 Peripheral vascular disease, unspecified; Z95.0 Presence of cardiac pacemaker; Y83.8 Other surgical procedures as the cause of abnormal reaction of the patient, or of later complication, without mention of misadventure at the time of the procedure ==

== ENCOUNTER 2025-02-14 08:52 | Day surgery (SDC) | payer MEDICARE | END 2025-02-14 23:00 | disposition home or self-care (01) | LOC: WOUND 08:52 | DX: L97.212 Non-pressure chronic ulcer of right calf with fat layer exposed (principal); S80.11XA Contusion of right lower leg, initial encounter; X58.XXXA Exposure to other specified factors, initial encounter; I87.2 Venous insufficiency (chronic) (peripheral); I10 Essential (primary) hypertension; I73.9 Peripheral vascular disease, unspecified; Z95.0 Presence of cardiac pacemaker; I48.91 Unspecified atrial fibrillation; Z79.01 Long term (current) use of anticoagulants ==

== ENCOUNTER 2025-02-21 05:57 | Day surgery (SDC) | payer MEDICARE | END 2025-02-21 23:00 | disposition home or self-care (01) | LOC: WOUND 05:57 | DX: L97.212 Non-pressure chronic ulcer of right calf with fat layer exposed (principal); S80.11XA Contusion of right lower leg, initial encounter; X58.XXXA Exposure to other specified factors, initial encounter; I87.2 Venous insufficiency (chronic) (peripheral); Z95.0 Presence of cardiac pacemaker; I10 Essential (primary) hypertension; I73.9 Peripheral vascular disease, unspecified; I48.91 Unspecified atrial fibrillation; Z79.01 Long term (current) use of anticoagulants; Z79.899 Other long term (current) drug therapy ==

== ENCOUNTER 2025-02-28 04:07 | Day surgery (SDC) | payer MEDICARE | END 2025-02-28 23:26 | disposition home or self-care (01) | LOC: WOUND 04:07 | DX: L97.212 Non-pressure chronic ulcer of right calf with fat layer exposed (principal); S80.11XA Contusion of right lower leg, initial encounter; I87.2 Venous insufficiency (chronic) (peripheral); Z95.0 Presence of cardiac pacemaker; I10 Essential (primary) hypertension; I73.9 Peripheral vascular disease, unspecified; I48.91 Unspecified atrial fibrillation; Z79.01 Long term (current) use of anticoagulants ==

== ENCOUNTER 2025-03-07 01:45 | Day surgery (SDC) | payer MEDICARE | END 2025-03-07 23:31 | disposition home or self-care (01) | LOC: WOUND 01:45 | DX: L97.212 Non-pressure chronic ulcer of right calf with fat layer exposed (principal); S80.11XA Contusion of right lower leg, initial encounter; X58.XXXA Exposure to other specified factors, initial encounter; I87.2 Venous insufficiency (chronic) (peripheral); Z95.0 Presence of cardiac pacemaker; I10 Essential (primary) hypertension; I73.9 Peripheral vascular disease, unspecified; I48.91 Unspecified atrial fibrillation; Z79.01 Long term (current) use of anticoagulants ==

== ENCOUNTER 2025-03-28 03:25 | Day surgery (SDC) | payer MEDICARE | END 2025-03-28 23:50 | disposition home or self-care (01) | LOC: WOUND 03:25 | DX: L97.212 Non-pressure chronic ulcer of right calf with fat layer exposed (principal); S80.11XA Contusion of right lower leg, initial encounter; I87.2 Venous insufficiency (chronic) (peripheral); I10 Essential (primary) hypertension; I73.9 Peripheral vascular disease, unspecified; Z95.0 Presence of cardiac pacemaker ==

== ENCOUNTER 2025-04-18 08:00 | Day surgery (SDC) | payer MEDICARE | END 2025-04-18 23:00 | disposition home or self-care (01) | LOC: WOUND 08:00 | DX: L97.812 Non-pressure chronic ulcer of other part of right lower leg with fat layer exposed (principal); S80.11XA Contusion of right lower leg, initial encounter; I87.2 Venous insufficiency (chronic) (peripheral); I10 Essential (primary) hypertension; I73.9 Peripheral vascular disease, unspecified; I48.91 Unspecified atrial fibrillation; Z95.0 Presence of cardiac pacemaker; Z79.01 Long term (current) use of anticoagulants | CPT/HCPCS: G0463 ==

== ENCOUNTER 2025-04-21 08:06 | Day surgery (SDC) | payer MEDICARE | END 2025-04-21 23:00 | disposition home or self-care (01) | LOC: WOUND 08:06 | DX: L97.212 Non-pressure chronic ulcer of right calf with fat layer exposed (principal); S80.11XA Contusion of right lower leg, initial encounter; I87.2 Venous insufficiency (chronic) (peripheral); I10 Essential (primary) hypertension; I73.9 Peripheral vascular disease, unspecified; I48.91 Unspecified atrial fibrillation; Z95.0 Presence of cardiac pacemaker; Z79.01 Long term (current) use of anticoagulants | CPT/HCPCS: G0463 ==

== ENCOUNTER 2025-04-25 04:12 | Day surgery (SDC) | payer MEDICARE ==
[2025-04-25] MEDS ORDERED: Lidocaine HCl 4% Cream 5 GM ONE (11:05)
== END 2025-04-25 23:00 | disposition home or self-care (01) ==
LOC: WOUND 04:12
DX: L97.212 Non-pressure chronic ulcer of right calf with fat layer exposed (principal); S80.11XA Contusion of right lower leg, initial encounter; I87.2 Venous insufficiency (chronic) (peripheral); I10 Essential (primary) hypertension; I73.9 Peripheral vascular disease, unspecified; Z95.0 Presence of cardiac pacemaker; X58.XXXA Exposure to other specified factors, initial encounter
CPT/HCPCS: A9270; G0463

== ENCOUNTER 2025-04-27 01:41 | Day surgery (SDC) | payer MEDICARE | END 2025-04-27 23:00 | disposition home or self-care (01) | LOC: WOUND 01:41 | DX: L97.212 Non-pressure chronic ulcer of right calf with fat layer exposed (principal); S80.11XA Contusion of right lower leg, initial encounter; X58.XXXA Exposure to other specified factors, initial encounter; I87.2 Venous insufficiency (chronic) (peripheral); I73.9 Peripheral vascular disease, unspecified; I10 Essential (primary) hypertension; Z95.0 Presence of cardiac pacemaker | CPT/HCPCS: G0463 ==

== ENCOUNTER 2025-05-09 01:02 | Day surgery (SDC) | payer MEDICARE | END 2025-05-09 23:00 | disposition home or self-care (01) | LOC: WOUND 01:02 | DX: L97.212 Non-pressure chronic ulcer of right calf with fat layer exposed (principal); I87.2 Venous insufficiency (chronic) (peripheral); I10 Essential (primary) hypertension; I73.9 Peripheral vascular disease, unspecified; Z95.0 Presence of cardiac pacemaker | CPT/HCPCS: G0463 ==

== ENCOUNTER 2025-05-16 00:44 | Day surgery (SDC) | payer MEDICARE | END 2025-05-16 23:00 | disposition home or self-care (01) | LOC: WOUND 00:44 | DX: L97.212 Non-pressure chronic ulcer of right calf with fat layer exposed (principal); S80.11XA Contusion of right lower leg, initial encounter; I87.2 Venous insufficiency (chronic) (peripheral); I10 Essential (primary) hypertension; I73.9 Peripheral vascular disease, unspecified; Z95.0 Presence of cardiac pacemaker | CPT/HCPCS: G0463 ==

== ENCOUNTER 2025-06-13 06:34 | Day surgery (SDC) | payer MEDICARE, BC ==
[~2025-06-13] VITALS: Ht 172.7 cm; Wt 97.0 kg
[~2025-06-13 06:34] MED LIST changes: +Aspir 8181 MG PO; +IPRAT-ALBUT 0.5-3 ML IH; +Pentoxifylline400 MG PO; +TRAM50 PO
[2025-06-13] MEDS ORDERED: NS 250 ML IV ONE (06:55)
[2025-06-13] MEDS ORDERED: NS 500 ML IV ONE (06:55)
[2025-06-13] MEDS ORDERED: Heparin Sodium 1000 Units/ML 10ML MDV ONE (06:55)
[2025-06-13] MEDS ORDERED: CeFAZolin Sodium 1000 mg Vial ONE (06:56)
[2025-06-13] MEDS ORDERED: PRESERVISION A1 EAC4 PO (07:09)
[2025-06-13] MEDS ORDERED: Midazolam HCl 1MG / ML 2ML Vial ONE (07:23)
[2025-06-13] MEDS ORDERED: CeFAZolin Sodium 2,000 MG VIAL ONE (07:23)
[2025-06-13] MEDS ORDERED: FentaNYL Citrate 50 MCG/ML 2 ML Injection ONE (07:23)
[2025-06-13] MEDS ORDERED: NS 50 ML IV ONE (07:24)
[2025-06-13] MEDS ORDERED: NS 1,000 ML IV ONE (07:24)
[2025-06-13 07:25] VITALS: BP 167/90
[2025-06-13 07:30] VITALS: BP 162/94
[2025-06-13 09:15] VITALS: BP 108/88
[2025-06-13 09:30] VITALS: BP 147/41
--- NOTE | 2025-06-13 09:59 | NUR ---
PATIENT RETURN FROM [facility], REPORT RECEIVED, SITE INTACT, SMALL OLD OOZING NOTED, MONITORED IN RECOVERY AND NO CHANGE AT SITE, GIVEN ICE PACK, PROVIDER DISCUSS D/C PLAN, NO ACUTE NEEDS, REVIEWED ALL D/C INSTRUCTIONS, MEDS, F/U APPTS, SITE CARE AND CARD GIVEN AND COPY OF ORDERS, NO QUESTIONS OR CONCERNS FROM PATIENT/FAMILY, IV REMOVED, BELONGINGS GATHERED BY FAMILY, PATIENT DRESSED AND TAKEN BY WHEELCHAIR ACCOMPANIED BY FAMILY AND THIS RN, NO CONCENS AT DISCHARGE, LEFT UNIT AT 0955.
== END 2025-06-13 09:55 | disposition home or self-care (01) ==
LOC: MHTC 06:34
DX: Z45.010 Encounter for checking and testing of cardiac pacemaker pulse generator [battery] (principal); I42.1 Obstructive hypertrophic cardiomyopathy; I25.10 Atherosclerotic heart disease of native coronary artery without angina pectoris; I48.21 Permanent atrial fibrillation; I11.0 Hypertensive heart disease with heart failure; I50.83 High output heart failure; H35.30 Unspecified macular degeneration; E78.2 Mixed hyperlipidemia; D64.9 Anemia, unspecified; D68.59 Other primary thrombophilia; E66.9 Obesity, unspecified; Z68.32 Body mass index [BMI] 32.0-32.9, adult; Z79.82 Long term (current) use of aspirin; Z79.899 Other long term (current) drug therapy
CPT/HCPCS: 33228; 99152; 99153; C1785; J0690; J1644; J2250; J3010; J7030; J7040; J7050

== ENCOUNTER 2025-08-11 00:29 | Day surgery (SDC) | payer MEDICARE, BC ==
[~2025-08-11 00:29] MED LIST changes: +PRESERVISION A1 EAC4 PO
[2025-08-11] MEDS ORDERED: Lidocaine HCl 4% Cream 5 GM ONE (09:27)
== END 2025-08-11 23:00 | disposition home or self-care (01) ==
LOC: WOUND 00:29
DX: L97.212 Non-pressure chronic ulcer of right calf with fat layer exposed (principal); I87.2 Venous insufficiency (chronic) (peripheral); I73.9 Peripheral vascular disease, unspecified; I10 Essential (primary) hypertension; I48.91 Unspecified atrial fibrillation; J44.9 Chronic obstructive pulmonary disease, unspecified; H40.9 Unspecified glaucoma; Z79.01 Long term (current) use of anticoagulants; Z95.0 Presence of cardiac pacemaker
CPT/HCPCS: A9270

== ENCOUNTER 2025-08-18 02:38 | Day surgery (SDC) | payer MEDICARE, BC ==
[2025-08-18] MEDS ORDERED: Lidocaine HCl 4% Cream 5 GM ONE (11:04)
== END 2025-08-18 23:00 | disposition home or self-care (01) ==
LOC: WOUND 02:38
DX: L97.812 Non-pressure chronic ulcer of other part of right lower leg with fat layer exposed (principal); I87.2 Venous insufficiency (chronic) (peripheral); I48.91 Unspecified atrial fibrillation; I73.9 Peripheral vascular disease, unspecified; J44.9 Chronic obstructive pulmonary disease, unspecified
CPT/HCPCS: A9270

== ENCOUNTER 2025-08-24 01:34 | Day surgery (SDC) | payer MEDICARE, BC | END 2025-08-24 23:00 | disposition home or self-care (01) | LOC: WOUND 01:34 | DX: Z48.00 Encounter for change or removal of nonsurgical wound dressing (principal); L97.819 Non-pressure chronic ulcer of other part of right lower leg with unspecified severity ==

== ENCOUNTER 2025-09-01 00:38 | Day surgery (SDC) | payer MEDICARE, BC ==
[2025-09-01] MEDS ORDERED: Lidocaine HCl 4% Cream 5 GM ONE (10:40)
== END 2025-09-01 23:00 | disposition home or self-care (01) ==
LOC: WOUND 00:38
DX: L97.212 Non-pressure chronic ulcer of right calf with fat layer exposed (principal); I87.2 Venous insufficiency (chronic) (peripheral); I10 Essential (primary) hypertension; I73.9 Peripheral vascular disease, unspecified; Z95.0 Presence of cardiac pacemaker; I48.91 Unspecified atrial fibrillation; Z79.01 Long term (current) use of anticoagulants
CPT/HCPCS: A9270

== ENCOUNTER 2025-09-08 00:25 | Day surgery (SDC) | payer MEDICARE, BC ==
[2025-09-08] MEDS ORDERED: Lidocaine HCl 4% Cream 5 GM ONE (10:43)
== END 2025-09-08 23:00 | disposition home or self-care (01) ==
LOC: WOUND 00:25
DX: L97.212 Non-pressure chronic ulcer of right calf with fat layer exposed (principal); I87.2 Venous insufficiency (chronic) (peripheral); I73.9 Peripheral vascular disease, unspecified; I10 Essential (primary) hypertension; I48.91 Unspecified atrial fibrillation; Z79.01 Long term (current) use of anticoagulants; Z95.0 Presence of cardiac pacemaker
CPT/HCPCS: A9270

== ENCOUNTER 2025-09-14 01:12 | Day surgery (SDC) | payer MEDICARE, BC | END 2025-09-14 23:00 | disposition home or self-care (01) | LOC: WOUND 01:12 | DX: L97.812 Non-pressure chronic ulcer of other part of right lower leg with fat layer exposed (principal) ==

== ENCOUNTER 2025-09-23 03:16 | Day surgery (SDC) | payer MEDICARE, BC | END 2025-09-23 23:00 | disposition home or self-care (01) | LOC: WOUND 03:16 | DX: L97.812 Non-pressure chronic ulcer of other part of right lower leg with fat layer exposed (principal); I87.2 Venous insufficiency (chronic) (peripheral); I73.9 Peripheral vascular disease, unspecified; I10 Essential (primary) hypertension; I48.91 Unspecified atrial fibrillation; Z87.828 Personal history of other (healed) physical injury and trauma; Z95.0 Presence of cardiac pacemaker; Z79.01 Long term (current) use of anticoagulants | CPT/HCPCS: G0463 ==

== ENCOUNTER 2025-09-29 04:17 | Day surgery (SDC) | payer MEDICARE, BC ==
[2025-09-29] MEDS ORDERED: Lidocaine HCl 4% Cream 5 GM ONE (10:54)
== END 2025-09-29 23:00 | disposition home or self-care (01) ==
LOC: WOUND 04:17
DX: L97.812 Non-pressure chronic ulcer of other part of right lower leg with fat layer exposed (principal); I87.2 Venous insufficiency (chronic) (peripheral); I73.9 Peripheral vascular disease, unspecified; I10 Essential (primary) hypertension; I48.91 Unspecified atrial fibrillation; Z95.0 Presence of cardiac pacemaker; Z87.828 Personal history of other (healed) physical injury and trauma; Z79.01 Long term (current) use of anticoagulants
CPT/HCPCS: A9270